=== PATIENT | female | born 1960 | race Caucasian/White ===

== ENCOUNTER 2021-01-07 12:41 | Outpatient (CLI) | payer OTHER, SELFPAY ==
--- NOTE | 2021-01-07 12:53 | USCV_ITS ---
NOTE: Report was unsigned for reason: Order was edited. Original Signature date and time was: 01/07/21 @ 1805 Li Griffin Age: 60 Gender: F : 1960 Exam Date: 01/07/2021 13:29 Ordering Phys: Virgilio White MD Technologist: Chato Dyson Exam Location: [facility] [place] Indication: AORTIC EJECTION MURMUR BP: 136 / 70 HR: 65 Rhythm: Sinus Technical Quality: Adequate MEASUREMENTS (Male / Female) Normal Values 2D ECHO LV Diastolic Diameter PLAX 3.8 cm 4.2 - 5.9 / 3.9 - 5.3 cm LV Systolic Diameter PLAX 2.4 cm IVS Diastolic Thickness 1.3 cm 0.6 - 1.0 / 0.6 - 0.9 cm IVS Systolic Thickness 1.5 cm LVPW Diastolic Thickness 1.2 cm 0.6 - 1.0 / 0.6 - 0.9 cm LVPW Systolic Thickness 1.3 cm LVOT Diameter 2.1 cm LV Ejection Fraction 2D Teich 66.9 % LV Ejection Fraction MOD 2C 38.8 % LV Ejection Fraction 2C AL 41.3 % LA Diameter 3.9 cm LA Width 5.1 cm LA Height 6.0 cm RA Width 4.8 cm RA Height 6.3 cm Aorta at Sinotubular Diameter 2.9 cm DOPPLER AV Peak Velocity 127.0 cm/s LVOT Peak Velocity 87.0 cm/s AV Area Cont Eq vti 2.9 cm squared AV Area Cont Eq pk 2.5 cm squared MV Area PHT 5.0 cm squared Mitral E to A Ratio 1.1 MV E' Velocity 45.0 cm/s Mitral E to MV E' Ratio 9.9 Mitral E to LV E' Lateral Ratio 14.7 Mitral E to LV E' Septal Ratio 7.5 TR Peak Velocity 145.0 cm/s TR Peak Gradient 8.4 mmHg PV Peak Velocity 87.0 cm/s FINDINGS Left Ventricle Normal left ventricular size and systolic function, EF 55%. No regional wall motion abnormalities. Study performed with contrast echo Right Ventricle The right ventricle is normal in size and function. Right Atrium . Mildly increased right atrial size. Left Atrium Mildly increased left atrial size. Mitral Valve Thickened mitral valve. Aortic Valve Thickened aortic valve. Tricuspid Valve Tricuspid valve not well visualized. Pulmonic Valve Pulmonic valve not well visualized. Pericardium Normal pericardium without effusion. Aorta Plaque seen in the ascending aorta. CONCLUSIONS Normal left ventricular size and systolic function, EF 55%. No regional wall motion abnormalities. Study performed with contrast echo. Thickened aortic and mitral valves. Could not get a good gradient across the aortic valve Plaque seen in the ascending aorta. The study is of suboptimal quality because of poor ultrasonic window-contrast echo was used Dr Tonio Granados MD [facility] (Electronically Signed) Final Date: 07 January 2021 18:05 S MTDD
[2021-01-07] MEDS: perflutren protein-a microsphr 0.22 mg/mL SDV 3 mL (13:47)
[2021-01-07] MEDS: perflutren protein-a microsphr 0.22 mg/mL SDV 3 mL IV ×2 (14:02→14:57)
== END 2021-01-07 12:42 | disposition home or self-care (01) ==
PROVIDERS: PCP Family Medicine; Visit Provider Family Medicine
DX: I08.0 Rheumatic disorders of both mitral and aortic valves
CPT/HCPCS: C8929; Q9956

== ENCOUNTER 2021-08-11 10:11 | Emergency (ER) | payer OTHER, SELFPAY ==
[2021-08-11 10:18] VITALS: BP 137/72; PULSE 59; RESP 17; TEMP 36.4; O2SAT 98; BMI 55.4
--- NOTE | 2021-08-11 10:18 | W.ED.ARRPALP ---
HPI - Arrhythmia/Palpitations General: Chief Complaint: Recheck/Abnormal Lab/Rx Stated Complaint: pt states Palletlets are low and is in afib Time Seen by Provider: 08/11/21 10:15 Source: patient Mode of arrival: ambulatory History of Present Illness: 61-year-old female presents to the emergency room. States she was directed here by nurse practitioner after she had a preop screening in which her platelet count was low she is not sure exactly what it was still number between 65 and 68. In talking to her it sounds like she has had thrombocytopenia in the past as well. They also done EKG and told her that she was in atrial fibrillation. She states she was told she needed to see a assembly technician immediately. 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 She states her heart rate when she is monitoring at home has been in the 60s but irregular. She not had any lightheadedness short of notes of breath. She has a vague chest discomfort that sounds like it is chronic. Not having any symptoms at this time. She is morbidly obese and has a history of diabetes mellitus. Her preop screening was for a D&C because of abnormal postmenopausal uterine bleeding. MD complaint: skipped beats and irregular heart beat Onset (ago): day(s) Duration: intermittent Severity: mild Context: occurred during rest Associated symptoms: Deny nausea or vomiting Review of Systems Const: Denies: fever(s), chills, body aches, change in appetite, fatigue or malaise ENMT: Denies: throat pain, ear or mastoid pain, nasal discharge or nasal congestion Card: Reports: palpitations; Denies: chest pain, edema, dyspnea on exertion or orthopnea Resp: Denies: dyspnea, productive cough or non-productive cough GI: Denies: abdominal pain, nausea, vomiting, hematemesis, coffee ground emesis, diarrhea, constipation, bloating, hematochezia or melena : Denies: flank pain, difficulty voiding, dysuria, urinary frequency or urinary urgency Skin/Breast: Denies: rash or pruritus [facility] ED PFSH: Medical History (Updated 08/13/21 @ 06:54 by Luis Bates DO) Hypertension Thrombocytopenia Social History (Updated 08/13/21 @ 06:53 by Luis Bates DO) Smoking and tobacco status: never smoked Alcohol intake: never Physical Exam Const: COMMON NORMALS: no acute distress GENERAL APPEARANCE: cooperative and comfortable ORIENTATION/CONSCIOUSNESS: Yes awake, Yes oriented to person, Yes oriented to place and Yes oriented to time HENMT: COMMON NORMALS: normocephalic, atraumatic and hearing grossly normal bilaterally HEAD & SCALP: normocephalic and atraumatic Neck/C-Spine: COMMON NORMALS: no JVD Resp: COMMON NORMALS: normal respiratory effort, No retractions, No use of accessory muscles and clear to auscultation bilaterally AUSCULTATION: clear to auscultation bilaterally Cardio: COMMON NORMALS: no JVD, regular rhythm and No murmurs present (Cardio) RATE: bradycardic RHYTHM: regular rhythm GI: COMMON NORMALS: Soft to palpation and No hepatosplenomegaly present AUSCULTATION: Yes normoactive bowel sounds PALPATION: Yes Soft to palpation, No Tenderness to palpation present (GI), No Guarding due to palpation present (GI) and Yes No hepatosplenomegaly present Extremity: COMMON NORMALS: normal to inspection, capillary refill normal, no clubbing, cyanosis or edema, no calf tenderness and no pedal edema Neuro: SENSORIUM/ORIENTATION: Yes oriented to person, Yes oriented to place and Yes oriented to time Skin: COMMON NORMALS: no rashes or lesions noted GENERAL SKIN EXAM: no rashes or lesions noted Course Vital Signs: Vital signs: Vital Signs Temperature 97.5 F L 08/11/21 10:18 Pulse Rate 65 08/11/21 12:34 Respiratory Rate 16 08/11/21 12:34 Blood Pressure 135/65 08/11/21 12:34 Pulse Oximetry 96 08/11/21 12:34 MDM - Arrhythmia/Palpitations Medical Decision Making Patient presents with sinus bradycardia but no atrial fibrillation. She is thrombocytopenic but not at a level where she would require any transfusion of platelets. Encourage her to follow-up with her primary care doctor she can be referred to hematology and cardiology. We will set her up for 48-hour Holter monitor return if has problems. Suspect some of her bradycardia is due to the atenolol she takes on a prescribed basis. Medical Records I reviewed the patient's medical records. Lab Data I reviewed the patient's lab results. : 08/11/21 10:44 08/11/21 10:44 Radiology Impressions Chest X-Ray 08/11/21 10:19 IMPRESSION: 1. No acute cardiopulmonary finding. Laboratory Results WBC 3.8 10^3/uL (4.0-10.0) L 08/11/21 10:44 RBC 4.17 10^6/uL (4.1-5.3) 08/11/21 10:44 Hgb 13.3 g/dL (11.5-15.3) 08/11/21 10:44 Hct 39.3 % (37.0-47.0) 08/11/21 10:44 MCV 94.2 fl (81-99) 08/11/21 10:44 MCH 31.9 pg (28.0-34.0) 08/11/21 10:44 MCHC 33.8 g/dL (30.0-36.0) 08/11/21 10:44 RDW 13.9 % (12.1-15.1) 08/11/21 10:44 Plt Count 73 10^3/cmm (130-400) L 08/11/21 10:44 MPV 9.6 fL (7.4-10.4) 08/11/21 10:44 Neut % (Auto) 50.8 % 08/11/21 10:44 Lymph % (Auto) 33.7 % 08/11/21 10:44 Haakon % (Auto) 7.9 % 08/11/21 10:44 Eos % (Auto) 6.3 % 08/11/21 10:44 Baso % (Auto) 1.3 % 08/11/21 10:44 Neut # (Auto) 1.93 10^3/uL (1.8-7.7) 08/11/21 10:44 Lymph # (Auto) 1.3 10^3/uL (0.8-4.8) 08/11/21 10:44 Haakon # (Auto) 0.3 10^3/uL (0.2-0.9) 08/11/21 10:44 Eos # (Auto) 0.2 10^3/uL (0.0-0.8) 08/11/21 10:44 Baso # (Auto) 0.1 10^3/uL (0.0-0.1) 08/11/21 10:44 Nucleated RBC % (auto) 0 % 08/11/21 10:44 Nucleated RBCs # 0.0 /100WBC 08/11/21 10:44 Sodium 140 mmol/L (136-145) 08/11/21 10:44 Potassium 4.1 mmol/L (3.5-5.1) 08/11/21 10:44 Chloride 107 mmol/L (98-107) 08/11/21 10:44 Carbon Dioxide 24 mmol/L (22-29) 08/11/21 10:44 Anion Gap 13.1 (5-19) 08/11/21 10:44 BUN 3 mg/dL (8-23) L 08/11/21 10:44 Creatinine 0.6 mg/dL (0.5-0.9) 08/11/21 10:44 GFR Calculation 102.0 mL/min (90-130) 08/11/21 10:44 Glucose 106 mg/dL (65-115) 08/11/21 10:44 Calculated Osmolality 287 mOsm/kg (285-295) 08/11/21 10:44 Calcium 8.8 mg/dL (8.5-10.5) 08/11/21 10:44 Troponin T Baseline 6 ng/L (0-10) 08/11/21 10:44 Discharge Plan Discharge Clinical Impression: Heart palpitations, Bradycardia on ECG, Thrombocytopenia Discharge Orders: Discharge ED (Routine); Ordered 08/11/21 Ordered By: Luis Bates Referrals: Virgilio White MD [Primary Care Provider] - Discharge Diet: Usual diet Patient Instructions: Opioid Safety Activity Restrictions/Additional Instructions: Follow-up with your primary care doctor next week. Case management will call make arrangements for you to have a Coding Level of Care Code ED Fancy Stitcher for Chg Fwd Exam Comprehensive
--- NOTE | 2021-08-11 10:19 | ECG_ITS ---
[facility] Test Date: 2021-08-11 Pat Name: Li Griffin Department: Room: Gender: Female Supervisor Cook Room: : 1960 Requested By: Luis Cowan Order Number: [id number] Antonio MD: Tonio Granados M.D. Measurements Intervals Mio Rate: 56 P: 119 NM: 181 QRS: 103 QRSD: 122 T: 163 QT: 462 QTc: 449 Interpretive Statements SINUS BRADYCARDIA LATERAL MYOCARDIAL INFARCTION , OF INDETERMINATE AGE [40+ ms Q WAVE AND/OR ST/T ABNORMALITY IN I/aVL/V5/V6] Compared to ECG 07/20/2018 12:25:10 Myocardial infarct finding now present Intraventricular conduction delay no longer present Electronically Signed On 08-11-2021 20:04:21 ZOO KEEPER by Tonio Granados M.D. [email or web address]
--- NOTE | 2021-08-11 10:19 | XR_ITS ---
WS: [id number] Exam: XR chest 1V portable [id number] Date/Time of Exam: 08/11/2021 10:30 AM Reason For Exam: dyspnea/cough Comparison 07/20/2018. The lungs are clear and fully expanded. Unremarkable cardiomediastinal silhouette for technique. No p leural effusions. Mild chronic elevation of the right diaphragm. Regional bony elements are intact. XR/XR chest 1V portable [id number] IMPRESSION: 1. No acute cardiopulmonary finding.
[2021-08-11 10:48] VITALS: BP 135/65; PULSE 57; RESP 14; O2SAT 96
[2021-08-11 10:55] LABS: Basophils # 0.1 10^3/uL (0.0-0.1); Basophils % 1.3 %; Eosinophils # 0.2 10^3/uL (0.0-0.8); Eosinophils % 6.3 %; Hematocrit 39.3 % (37.0-47.0); Hemoglobin 13.3 g/dL (11.5-15.3); Lymphocytes # 1.3 10^3/uL (0.8-4.8); Lymphocytes % 33.7 %; Mean Corpuscular HGB Conc 33.8 g/dL (30.0-36.0); Mean Corpuscular Hemoglobin 31.9 pg (28.0-34.0); Mean Corpuscular Volume 94.2 fl (81-99); Mean Platelet Volume 9.6 fL (7.4-10.4); Monocytes # 0.3 10^3/uL (0.2-0.9); Monocytes % 7.9 %; Neutrophils # 1.93 10^3/uL (1.8-7.7); Neutrophils % 50.8 %; Nucleated Red Blood Cells % 0 %; Platelet Count 73 10^3/cmm (130-400); Red Blood Count 4.17 10^6/uL (4.1-5.3); Red Cell Distribution Width 13.9 % (12.1-15.1); White Blood Count 3.8 10^3/uL (4.0-10.0)
[2021-08-11 11:08] VITALS: BP 135/65; PULSE 57; RESP 14; O2SAT 96
[2021-08-11 11:18] LABS: Troponin(5th) Baseline 6 ng/L (0-10)
[2021-08-11 11:19] LABS: Blood Urea Nitrogen 3 mg/dL (8-23); Calcium 8.8 mg/dL (8.5-10.5); Carbon Dioxide 24 mmol/L (22-29); Chloride 107 mmol/L (98-107); Creatinine Clr Calc Pharmacy 148.9364; Glucose 106 mg/dL (65-115); Osmolality Calculated 287 mOsm/kg (285-295); Sodium 140 mmol/L (136-145)
[2021-08-11 11:20] LABS: Anion Gap 13.1 (5-19); Potassium 4.1 mmol/L (3.5-5.1)
[2021-08-11 12:34] VITALS: BP 135/65; PULSE 65; RESP 16; O2SAT 96
--- NOTE | 2021-08-18 11:11 | DCPLANNER ---
Addendum entered by Yesi Traore 08/24/21 08:16: medical staff manager was told by [facility], patient refused halter monitor is following up with child's nurse in [place]. Original Note: medical staff manager had message to schedule an outpatient appointment at [facility] for patient for a 48 hour halter monitor. medical staff manager emailed signed order for the monitor to Heydi Shafer at [facility]. Clinic will call patient with appointment information.
== END 2021-08-11 11:39 | disposition home or self-care (01) ==
PROVIDERS: Emergency Provider Family Medicine; PCP Family Medicine
DX: D69.6 Thrombocytopenia, unspecified (principal); R00.1 Bradycardia, unspecified; R00.2 Palpitations; I10 Essential (primary) hypertension
CPT/HCPCS: 71045; 80048; 84484; 85025; 93005; 99283

== ENCOUNTER 2023-03-09 09:38 | Outpatient (CLI) | payer BC, MEDICAID, SELFPAY ==
--- NOTE | 2023-03-09 09:53 | MM_ITS ---
WS: [id number] BILATERAL 3D TOMOSYNTHESIS DIGITAL DIAGNOSTIC MAMMOGRAPHY WITH CAD CLINICAL INFORMATION: INFLAMMATORY DISORDER OF BR HISTORY: Breast infection that has resolved with antibiotics. COMPARISON: Baseline TECHNIQUE: Bilateral CC, MLO, and ML views. FINDINGS: Scattered fibroglandular densities bilaterally. Incidental punctate and secretory calcifications. No suspicious focal mass, asymmetry, calcifications, or architectural distortion. No evidence of dixie gnancy. IMPRESSION: MM/[place] [address] BI-RADS: 2-Benign FOLLOW UP: 1 Year Follow-up Recommend return to annual screening mammography.
== END 2023-03-09 09:39 | disposition home or self-care (01) ==
PROVIDERS: PCP Family Medicine; Visit Provider Family Medicine
DX: N61.0 Mastitis without abscess (principal)
CPT/HCPCS: 77062; G0279